=== PATIENT | female | born 1970 | race Caucasian/White ===

== ENCOUNTER 2018-09-20 18:55 | Emergency (ER) | payer OTHER ==
[2018-09-20 19:05] VITALS: BP 149/86
[2018-09-20] MEDS ORDERED: DIPH/PERTUSS(ACELL)/TETANUS VAC/PF 0.5 ML SYR (>=10YO) IM ONE (19:25)
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
--- NOTE | 2018-09-20 20:12 | RADIOLOGY REPORT (SQ) ---
3 VIEWS OF RIGHT WRIST EXAM DATE: 09/20/2018 7:25 PM CDT HISTORY: Wrist pain. COMPARISON: None. FINDINGS: No acute fracture or dislocation is seen. The joint spaces are preserved. The soft tissues are unremarkable. IMPRESSION: No acute fracture or malalignment.
[2018-09-20 21:01] LABS: ABSOLUTE BASOPHILS # (AUTO) 0.1 10^3/uL (0.0-0.2); ABSOLUTE EOSINOPHILS # (AUTO) 0.3 10^3/uL (0.0-0.6); ABSOLUTE MONOCYTES (AUTO) 0.7 10^3/uL (0.1-1.4); ABSOLUTE NEUT (AUTO) 10.9 10^3/uL (1.7-8.2); BASOPHILS % (AUTO) 0.6 % (0-2); EOSINOPHILS % (AUTO) 1.8 % (0-6); HEMOGLOBIN 14.5 g/dL (12.0-15.5); LYMPHOCYTES % (AUTO) 14.3 % (13-45); MEAN CORPUSCULAR HGB CONC 33.8 g/dL (32.0-36.0); MEAN CORPUSCULAR VOLUME 92 fl (80-97); MONOCYTES % (AUTO) 5.2 % (3-13); PLATELET COUNT 265 10^3/uL (150-450); RED BLOOD COUNT 4.69 10^6/uL (3.72-5.28); RED CELL DISTRIBUTION WIDTH 12.7 % (11.5-14.0); SEGMENTED NEUTROPHILS % (AUTO) 78.1 % (42-78); TOTAL CELLS COUNTED % (AUTO) 100 %; WHITE BLOOD COUNT 13.9 10^3/uL (4.0-10.5)
[2018-09-20 21:12] LABS: INTERNATIONAL RATION (INR) 0.92; PROTHROMBIN TIME 12.4 SEC (11.4-15.4)
[2018-09-20 21:13] LABS: PARTIAL THROMBOPLASTIN TIME 28.4 SEC (23.5-35.8)
[2018-09-20 21:21] LABS: ALBUMIN 4.9 g/dL (3.5-5.0); ALKALINE PHOSPHATASE 102 U/L (38-126); ANION GAP 10 (5-19); ASPARTATE AMINO TRANSFERASE 30 U/L (14-36); BILIRUBIN,DIRECT 0.3 mg/dL (0.0-0.4); BILIRUBIN,TOTAL 0.4 mg/dL (0.2-1.3); BLOOD UREA NITROGEN 11 mg/dL (7-20); CALCIUM 9.5 mg/dL (8.4-10.2); CARBON DIOXIDE 28 mmol/L (22-30); CHLORIDE 104 mmol/L (98-107); GLUCOSE 118 mg/dL (75-110); POTASSIUM 3.8 mmol/L (3.6-5.0)
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
[2018-09-21] MEDS ORDERED: IBUPROFEN 800 MG TABLET PO ONE (01:55)
[2018-09-21] MEDS ORDERED: CYCLOBENZAPRINE HCL 10 MG TABLET PO ONE (01:57)
[2018-09-21] MEDS ORDERED: HYDROCODONE/ACETAMINOPHEN 5-325 MG (6 TAB/ER DISP) PO PRN (01:58)
[2018-09-21] MEDS ORDERED: SILVER SULFADIAZINE 1% CREAM 50 GM TP ONE (02:00)
[2018-09-21] MEDS ORDERED: SILVER SULFADIAZINE 1% CREAM 25 GM ONE (02:18)
--- NOTE | 2018-09-21 11:23 | EKG REPORT ---
SEVERITY:- NORMAL ECG - SINUS RHYTHM : Confirmed by: Yousif King 21-Sep-2018 11:21:59
== END 2018-09-21 02:37 | disposition home or self-care (01) ==
LOC: ER 18:55
DX: S20.212A Contusion of left front wall of thorax, initial encounter (principal); S63.501A Unspecified sprain of right wrist, initial encounter; S60.811A Abrasion of right wrist, initial encounter; M79.641 Pain in right hand; V87.7XXA Person injured in collision between other specified motor vehicles (traffic), initial encounter; Z23 Encounter for immunization; F17.200 Nicotine dependence, unspecified, uncomplicated; E11.9 Type 2 diabetes mellitus without complications
CPT/HCPCS: 93005; 36415; 85025; 85610; 85730; 80053; 73110; 71260; 90715; 93010; J3490; 90471; 99284